=== PATIENT | female | born 1935 | race Caucasian/White ===

== ENCOUNTER 2016-11-03 15:28 | Emergency (ER) | payer OTHER ==
[~2016-11-03] VITALS: Ht 154.9 cm; Wt 55.0 kg
[2016-11-03 15:31] VITALS: Ht 154.9 cm; Wt 55.0 kg
--- NOTE | 2016-11-03 16:05 | ERA ---
ER Documentation Chief Complaint Date/Time DATE: 11/03/16 TIME: 15:57 Chief Complaint ABD PAIN , NOT EATING WELL X 2 WEEKS HPI Patient is an 80-year-old female who has multiple complaints. It is very difficult to ascertain exactly what she specifically is here for. She apparently does have a cough with some congestion but she denies of fever. She denies sore throat, rhinorrhea, or otalgia. Her daughter says that she has had decreased appetite with some nausea but no vomiting. She may have had some constipation but no diarrhea, no dysuria, or hematuria. She reports some vague abdominal pain however cannot describe the pain. On examination she was noted to have some lower extremity edema but cannot tell me how long it has been there. The review of systems were limited. ROS All systems reviewed and are negative except as per history of present illness. Medications Home Meds Reported Medications Amlodipine Besylate* (Amlodipine Besylate*) 10 Mg Tablet, 5 MG PO QAM, #30 TAB 11/03/16 Lisinopril* (Lisinopril*) 20 Mg Tablet, 20 MG PO QAM, #30 TAB 11/03/16 Sitagliptin Phos/Metformin HCl (Janumet 50-500 mg Tablet) Unknown Strength Tablet, 1 EACH PO BID, TAB 11/03/16 Insulin Glargine* (Lantus*) 100 Unit/Ml Soln, 10-12 UNIT SC QHS, #1 VIAL 11/03/16 Allergies Allergies: Coded Allergies: No Known Allergy (Unverified , 11/03/16) FmHx Family History: coronary disease, diabetes Physical Exam Vitals Vital Signs Date Time Temp Pulse Resp B/P Pulse Ox O2 Delivery O2 Flow Rate FiO2 11/03/16 16:20 Nasal Cannula 1 11/03/16 15:31 99.1 75 18 155/69 98 Physical Exam Const: [] Well-developed well-nourished female lying on the bed no acute distress Head: Atraumatic normocephalic Eyes: Normal Conjunctiva ENT: Normal External Ears, Nose and Mouth. Neck: Full range of motion..~ No meningismus. Resp: Clear to auscultation bilaterally Cardio: Regular rate and rhythm, 4/6 systolic ejection murmur which radiates across the entire precordium, both the patient and daughter deny knowledge of this Abd: Soft, non tender, non distended. Normal bowel sounds Skin: No petechiae or rashes Back: No midline or flank tenderness Ext: No cyanosis, 2+ pitting edema of the feet ankles and lower extremities Neur: Awake and alert, GCS of 15, moves all extremities equally Psych: Normal Mood and Affect Result Diagram: 11/03/16 1625 11/03/16 1625 Results 24 hrs Laboratory Tests Test 11/03/16 16:19 11/03/16 16:20 11/03/16 16:25 Bedside Glucose 152mg/dL Urine Bacteria MANY Urine Bilirubin NEGATIVE Urine Clarity SLIGHTLY CLOUDY Urine Color LT. YELLOW Urine Glucose NEGATIVE% Urine Hemoglobin 1+ Urine Ketones NEGATIVE Urine Leukocyte Esterase 1+ Urine Microscopic RBC 0-2/HPF Urine Microscopic WBC 10-25/HPF Urine Nitrite POSITIVE Urine Specific Sun 1.015 Urine Squamous Epithelial Cells FEW Urine Total Protein NEGATIVE Urine Urobilinogen 0.2 E.U./dL Urine pH 5.5 Activated Partial Thromboplast Time 27.1Sec Alanine Aminotransferase (ALT/SGPT) 26IU/L Albumin 4.0g/dl Albumin/Globulin Ratio 1.29 Alkaline Phosphatase 60IU/L Anion Gap 19 Aspartate Amino Transf (AST/SGOT) 21IU/L B-Type Natriuretic Peptide 463PG/ML Basophils # 0.110^3/ul Basophils % 0.7% Blood Urea Nitrogen 35mg/dl Calcium Level 9.6mg/dl Carbon Dioxide Level 23mmol/L Chloride Level 107mmol/L Creatinine 0.95mg/dl Direct Bilirubin 0.00mg/dl Eosinophils # 0.210^3/ul Eosinophils % 3.2% Globulin 3.10g/dl Glucose Level 149mg/dl Hematocrit 31.3% Hemoglobin 10.7g/dl INR International Normalized Ratio 0.95 Indirect Bilirubin 0.1mg/dl Lymphocytes # 2.010^3/ul Lymphocytes % 27.1% Mean Corpuscular Hemoglobin 30.7pg Mean Corpuscular Hemoglobin Concent 34.2g/dl Mean Corpuscular Volume 89.7fl Mean Platelet Volume 12.1fl Monocytes # 0.410^3/ul Monocytes % 5.5% Neutrophils # 4.610^3/ul Neutrophils % 63.1% Nucleated Red Blood Cells # 0.010^3/ul Nucleated Red Blood Cells % 0.0/100WBC Platelet Count 39762^3/UL Potassium Level 4.9mmol/L Prothrombin Time 12.7Sec Prothrombin Time Ratio 1.0 Red Blood Count 3.4910^6/ul Red Cell Distribution Width 12.9% Sodium Level 144mmol/L Total Bilirubin 0.1mg/dl Total Protein 7.1g/dl Troponin I < 0.012ng/ml White Blood Count 7.210^3/ul Current Medications Medications (Trade) Dose Ordered Sig/Nadeen Route PRN Reason Start Time Stop Time Status Last Admin Dose Admin Ceftriaxone Sodium (Rocephin) 50 ml @ 100 mls/hr ONCE ONCE IVPB 11/03/16 17:30 11/03/16 17:59 DC 11/03/16 18:14 Furosemide (Lasix) 40 mg ONCE ONCE IV 11/03/16 18:00 11/03/16 18:01 DC 11/03/16 18:15 Procedures/MDM Differential includes but is not limited to congestive heart failure, pulmonary edema, pedal edema, nonspecific abdominal pain, general malaise, loss of appetite, urinary tract infection, pneumonia Chest x-ray does not reveal any acute cardiopulmonary process per the radiologist CT the abdomen and pelvis is consistent with constipation 181: I offered to have the patient admitted to the hospital for her urinary tract infection and her congestive heart failure however the daughter and the patient would like to go home and follow-up with her primary care physician for further evaluation as an outpatient. She is not hypoxic and she does not demonstrate any respiratory distress. She also does not have a fever nor does she have a white count. It appears she can follow-up as an outpatient at her discretion. She and her daughter have been advised that she should return to the emergency department if she develops any shortness of breath, chest pain, fever, vomiting, flank pain, or any new or worsening symptoms. They are in agreement with this plan. Departure Diagnosis: Primary Impression: Heart murmur previously undiagnosed Additional Impressions: Urinary tract infection Qualified Code: N30.00 - Acute cystitis without hematuria Congestive heart failure (CHF) Qualified Code: I50.9 - Congestive heart failure, unspecified congestive heart failure chronicity, unspecified congestive heart failure type Condition: Fair Patient Instructions: Heart Murmur, All Types (Child), Urinary Tract Infections in Women Additional Instructions: Please take all the medications as prescribed and schedule an appointment with your primary care physician. You need further evaluation of your heart murmur and its function. I would recommend a echo of your heart. Please take your antibiotics to clear up the infection of your bladder. Return to the emergency department if any time he develop any shortness of breath, fever, vomiting, or new or worsening symptoms. NABEEL GARCIA Nov 03, 2016 16:05
[2016-11-03] MEDS ORDERED: LANT3I SC (16:30)
[2016-11-03] MEDS ORDERED: SITA1TAB PO (16:31)
[2016-11-03] MEDS ORDERED: LISI20TA11 PO (16:34)
[2016-11-03] MEDS ORDERED: AMLO-147 PO (16:35)
[2016-11-03 16:44] LABS: ADD SCAN DIFF NO
[2016-11-03 16:46] LABS: BASOPHIL # 0.1 10^3/ul (0.0-0.1); BASOPHILS % 0.7 % (0.0-2.0); EOSINOPHILS # 0.2 10^3/ul (0.0-0.5); EOSINOPHILS % 3.2 % (0.0-7.0); HEMATOCRIT 31.3 % (37.0-47.0); HEMOGLOBIN 10.7 g/dl (12.0-16.0); LYMPHOCYTES % 27.1 % (15.0-51.0); MEAN CORPUSCULAR HEMOGLOBIN 30.7 pg (29.0-33.0); MEAN CORPUSCULAR HGB CONC 34.2 g/dl (32.0-37.0); MEAN CORPUSCULAR VOLUME 89.7 fl (82.0-101.0); MEAN PLATELET VOLUME 12.1 fl (7.4-10.4); MONOCYTE # 0.4 10^3/ul (0.3-0.9); MONOCYTES % 5.5 % (0.0-11.0); NEUTROPHIL # 4.6 10^3/ul (1.6-7.5); NEUTROPHILS % 63.1 % (39.0-77.0); PLATELET COUNT 250 10^3/UL (140-415); RED BLOOD COUNT 3.49 10^6/ul (4.20-5.40); RED CELL DISTRIBUTION WIDTH 12.9 % (11.5-14.5); WHITE BLOOD COUNT 7.2 10^3/ul (4.8-10.8)
[2016-11-03 16:50] LABS: ADD UMIC YES; URINE BILIRUBIN (Dip) NEGATIVE (NEGATIVE); URINE BLOOD (Dip) 1+ (NEGATIVE); URINE COLOR LT. YELLOW (YELLOW); URINE GLUCOSE (Dip) NEGATIVE (NEGATIVE); URINE KETONES (Dip) NEGATIVE (NEGATIVE); URINE LEUKOCYTE ESTERASE (Dip) 1+ (NEGATIVE); URINE NITRITE (Dip) POSITIVE (NEGATIVE); URINE TOTAL PROTEIN (Dip) NEGATIVE (NEGATIVE); URINE UROBILINOGEN (Dip) 0.2 E.U./dL (0.1-1.0)
[2016-11-03 17:01] LABS: BACTERIA,URINE MANY; SQUAMOUS EPITHELIAL CELL,UR FEW; URINE RBCS 0-2 /HPF (0)
--- NOTE | 2016-11-03 17:02 | RADRPT ---
PROCEDURE: CT abdomen and pelvis without contrast. CLINICAL INDICATION: Abdominal pain TECHNIQUE: CT scan of the abdomen and pelvis without contrast was performed. Sagittal and coronal reformatted images were obtained from the axial source images. CTDI = 8.06 mGy; DLP = 407.52 mGy-cm COMPARISON: None available. FINDINGS: Visualized lower thorax: Mild dependent to left greater than right lower lobe subsegmental atelecta sis. Questionable noncalcified sub centimeter micro nodules in the posterior left lower lobe (serie s 3 image 23) and lateral segment right middle lobe (series 3 image 11). There is no evidence for p leural effusion. Liver, gallbladder, pancreas and spleen: The liver is normal and size, contour and attenuation. Th ere is no evidence for a liver mass or ductal dilatation. The gallbladder is unremarkable. No comm on bile duct abnormality is demonstrated. The pancreas is unremarkable. The spleen is normal in si ze. Adrenal glands and genitourinary system: The adrenal glands are normal bilaterally. The kidneys are normal and size, contour and attenuation with no evidence for masses, calculi or hydronephrosis, sm all bilateral parapelvic renal cysts are present are noted. The ureters are unremarkable. No urina ry bladder abnormality is demonstrated. The uterus is atrophic compatible the patient's age with mu ltiple vascular calcifications. No ovarian or adnexal masses are present. Gastrointestinal system: A small to moderate size sliding hiatal hernia is present there is suggest ion of distal esophageal wall thickening unable to exclude esophagitis. The stomach body and antrum are grossly normal.. A mild duodenal and jejunum ileus is suggested without bowel obstruction, ent eritis is a possibility. The distal ileum is unremarkable. The appendix is not visualize but there are no changes within the right lower quadrant to suggest appendicitis. A mild constipation pattern is suggested. There is no evidence for colitis or diverticulitis. Peritoneum, retroperitoneum, lymph nodes and vessels: The abdominal aorta is normal in caliber. The re is moderate to severe aortic and iliac system atherosclerotic calcification. The inferior vena c jamarcus is unremarkable. There is no evidence for adenopathy or mass. There is no ascites. No pneumope ritoneum is present. Small fat-containing umbilical hernia is present. Osseous structures and musculoskeletal findings: Demineralization with levoscoliosis and severe mul tilevel vacuum disk phenomenon as well as degenerative spondylosis of the thoracolumbar spine withou t fracture, lytic or blastic lesion. The pelvic bones and proximal femoral are unremarkable. No mu scular abnormality or soft tissue pathology is present. RPTAT:HJJR IMPRESSION: 1. Sliding hiatal hernia with mild thickening of the distal esophageal wall unable to exclude esoph agitis, findings possibly related to gastroesophageal reflux disease. 2. Mild ileus of the proximal small bowel, gastroenteritis is difficult to exclude. There is no ev idence of bowel obstruction. 3. Mild constipation pattern without colitis of diverticulitis. 4. Small fat-containing umbilical hernia. 5. Atherosclerotic calcification of the aorta and iliac systems. 6. Demineralization with dextroscoliosis of the lumbar spine and multilevel thoracolumbar spondylos is as well as degenerative disk disease. 7. Equivocal tiny lung base nodules. Follow-up evaluation should be based upon Fleischner criteria. Physician Uziel Date Time Electronically viewed and signed by Physician Uziel on 11/03/2016 17:02 /
--- NOTE | 2016-11-03 17:07 | RADRPT ---
PROCEDURE: XR Chest. CLINICAL INDICATION: Cough. TECHNIQUE: Two views. Frontal and lateral. COMPARISON: No prior study is available for comparison. FINDINGS: There is a benign calcified granuloma in the left upper lobe laterally. The lungs are otherwise marino ar. The heart size is normal. There is calcification in the aorta consistent with atherosclerosis. There is no pleural effusion. There is no pneumothorax. IMPRESSION: 1. Benign calcified granuloma in the left upper lobe laterally. 2. Atherosclerosis. 3. Otherwise normal chest x-ray. RPTAT: QQ .Dionte Parekh MD, MD Date Time Electronically viewed and signed by .Dionte Parekh MD, MD on 11/03/2016 17:07 .R/
[2016-11-03] MEDS ORDERED: CEFTRIAXONE 1 GM/50 ML (PMX) 50 ML IVPB ONE (17:30)
[2016-11-03 17:31] LABS: CHLORIDE 107 mmol/L (97-110); SODIUM 144 mmol/L (135-144)
[2016-11-03 17:32] LABS: POTASSIUM 4.9 mmol/L (3.5-5.1)
[2016-11-03 17:34] LABS: ALANINE AMINOTRANSFERASE 26 IU/L (13-69); ALBUMIN/GLOBULIN RATIO 1.29; ALKALINE PHOSPHATASE 60 IU/L (42-121); ANION GAP 19 (8-16); ASPARTATE AMINO TRANSFERASE 21 IU/L (15-46); BILIRUBIN,INDIRECT 0.1 mg/dl (0-1.1); BILIRUBIN,TOTAL 0.1 mg/dl (0.2-1.3); BLOOD UREA NITROGEN 35 mg/dl (7-20); CARBON DIOXIDE 23 mmol/L (21-31); CREATININE 0.95 mg/dl (0.44-1.00); GLUCOSE 149 mg/dl (70-220); TOTAL PROTEIN 7.1 g/dl (6.1-8.1)
[2016-11-03 17:35] LABS: CALCIUM 9.6 mg/dl (8.4-10.2)
[2016-11-03 17:38] LABS: INR 0.95; PROTIME 12.7 Sec (12.2-14.2)
[2016-11-03 17:39] LABS: PARTIAL THROMBOPLASTIN TIME 27.1 Sec (25.0-35.0)
[2016-11-03 17:43] LABS: B-TYPE NATRIURETIC PEPTIDE 463 PG/ML (0-450)
[2016-11-03 17:50] LABS: TROPONIN-I < 0.012 ng/ml (0.00-0.12)
[2016-11-03] MEDS ORDERED: FUROSEMIDE 40 MG INJ IV ONE (18:00)
[2016-11-03] MEDS ORDERED: ASPI81TA3 PO (18:29)
[2016-11-03] MEDS ORDERED: FURO-110 PO (18:29)
[2016-11-03] MEDS ORDERED: ONDA4TAB8 PO (18:30)
[2016-11-03] MEDS ORDERED: CIPR500T4 PO (18:30)
[2016-11-03] MEDS ORDERED: PANT40TA3 PO (18:31)
[2016-11-03 18:56] VITALS: BP 150/79; PULSE 71; RESP 18; TEMP 98.9
== END 2016-11-03 18:59 | disposition home or self-care (01) ==
LOC: E/R 15:28
DX: R01.1 Cardiac murmur, unspecified (principal); N30.00 Acute cystitis without hematuria; I50.9 Heart failure, unspecified; I10 Essential (primary) hypertension; Z79.4 Long term (current) use of insulin; Z79.84 Long term (current) use of oral hypoglycemic drugs
CPT/HCPCS: 36415; 71020; 74176; 80053; 81001; 82962; 83880; 84484; 85025; 85610; 85730; 87086; 93005; 96365; 96375; J0696; J1940; Z7502; 81003

== ENCOUNTER 2017-10-18 16:05 | Emergency (ER) | END 2017-10-18 18:09 | disposition home or self-care (01) ==